=== PATIENT | male | born 1990 | race American Indian/Alaskan Native ===

== ENCOUNTER 2016-11-25 | Emergency (ER) | payer SELFPAY ==
[2016-11-25 01:02] LABS: Urine Drugs of Abuse Note Disclamer
[2016-11-25 01:20] LABS: Bilirubin,Urine NEG (Negative); Blood,Urine NEG (Negative); Ketones,Urine TR mg/dL (Negative); Leukocyte Esterase,Urine NEG (Negative); Mucus,Urine FEW /HPF; Nitrite,Urine NEG (Negative); Protein,Urine <15 mg/dL mg/dL (Negative)
[2016-11-25 01:44] LABS: Basophils % (Auto) 0.3 % (0.0-1.8); Eosinophils % (Auto) 2.6 % (0.0-4.3); Hematocrit 41.4 % (35.5-45.6); Hemoglobin 13.7 gm/dl (11.8-15.2); Mean Corpuscular HGB Conc 33 % (32-34); Mean Corpuscular Hemoglobin 28 pg (28-32); Mean Corpuscular Volume 83 fl (84-94); Platelet Count 192 K/mm3 (140-440); Red Blood Count 4.97 M/mm3 (3.65-5.03); White Blood Count 8.1 K/mm3 (4.5-11.0)
[2016-11-25 02:04] LABS: Anion Gap 20 mmol/L; BUN/Creatinine Ratio 17.77; Blood Urea Nitrogen 16 mg/dL (9-20); Calcium 9.3 mg/dL (8.4-10.2); Carbon Dioxide 23 mmol/L (22-30); Glucose 125 mg/dL (75-100); Potassium 3.7 mmol/L (3.6-5.0); Sodium 134 mmol/L (137-145)
--- NOTE | 2016-11-25 05:41 | Emergency Department Report ---
ED Anxiety HPI - General Chief Complaint: Anxiety Stated Complaint: ANXIETY Time Seen by Provider: 11/25/16 05:25 Source: patient, EMS Mode of arrival: Ambulatory - History of Present Illness Initial Comments: 25-year-old male past medical history anxiety presents with complaint of having a panic attack while driving this evening. Patient states that he stopped his vehicle and called 911 because he was driving and had a panic attack. Patient states that he has been in his usual state of health. Patient is awake and alert and oriented 3 cooperative fully lucid during my interview. States he no longer feels anxious. States he was previously on antianxiety medicine but stopped over a year ago because he had not had any panic attacks. Patient currently denies any shortness of breath chest pain nausea vomiting fever or chills. Patient denies any auditory or visual hallucinations. He is requesting primary care follow-up as he does not currently have primary care doctor. Patient denies any alcohol or drug abuse. MD Complaint: anxiety Onset/Timin -: Sudden Place: other (while driving) Previous History of Same: Yes Severity: mild Quality: intermittant Provoking factors: none known Improves With: deep breaths Worsens With: nothing - Related Data Home Medications: Previous Rx's Medication Instructions Recorded Last Taken Type Clindamycin [Clindamycin CAP] 150 mg PO QID #80 capsule 03/07/14 Unknown Rx Ibuprofen [Motrin] 600 mg PO Q8H PRN #50 tablet 03/07/14 Unknown Rx Loratadine [Claritin] 10 mg PO DAILY #30 tablet 03/07/14 Unknown Rx predniSONE [Deltasone] 50 mg PO QDAY #5 tab 03/07/14 Unknown Rx diphenhydrAMINE [Benadryl CAP] 25 mg PO Q8HR PRN #1 bottle 11/25/16 Unknown Rx Allergies/Adverse Reactions: Allergies Allergy/AdvReac Type Severity Reaction Status Date / Time No Known Allergies Allergy Unverified 03/07/14 13:51 ED Review of Systems ROS: Stated complaint: ANXIETY Other details as noted in HPI Constitutional: denies: chills, fever Eyes: denies: eye pain, eye discharge, vision change ENT: denies: ear pain, throat pain Respiratory: denies: cough, shortness of breath, wheezing Cardiovascular: denies: chest pain, palpitations Endocrine: no symptoms reported Gastrointestinal: denies: abdominal pain, nausea, diarrhea Genitourinary: denies: urgency, dysuria Musculoskeletal: denies: back pain, joint swelling, arthralgia Skin: denies: rash, lesions Neurological: denies: headache, weakness, paresthesias Psychiatric: anxiety. denies: depression Hematological/Lymphatic: denies: easy bleeding, easy bruising ED Past Medical Hx - Past Medical History Previous Medical History?: Yes Hx Psychiatric Treatment: Yes (Anxiety) - Surgical History Past Surgical History?: No - Social History Smoking Status: Current Every Day Smoker Substance Use Type: None - Medications Home Medications: Home Medications Medication Instructions Recorded Confirmed Last Taken Type Clindamycin [Clindamycin CAP] 150 mg PO QID #80 capsule 03/07/14 Unknown Rx Ibuprofen [Motrin] 600 mg PO Q8H PRN #50 tablet 03/07/14 Unknown Rx Loratadine [Claritin] 10 mg PO DAILY #30 tablet 03/07/14 Unknown Rx predniSONE [Deltasone] 50 mg PO QDAY #5 tab 03/07/14 Unknown Rx diphenhydrAMINE [Benadryl CAP] 25 mg PO Q8HR PRN #1 bottle 11/25/16 Unknown Rx ED Physical Exam - General Limitations: No Limitations General appearance: alert, in no apparent distress - Head Head exam: Present: atraumatic, normocephalic - Eye Eye exam: Present: normal appearance, PERRL, EOMI - ENT ENT exam: Present: mucous membranes moist - Neck Neck exam: Present: normal inspection - Respiratory Respiratory exam: Present: normal lung sounds bilaterally. Absent: respiratory distress - Cardiovascular Cardiovascular Exam: Present: regular rate, normal rhythm. Absent: systolic murmur, diastolic murmur, rubs, gallop - GI/Abdominal GI/Abdominal exam: Present: soft, normal bowel sounds - Rectal Rectal exam: Present: deferred - Extremities Exam Extremities exam: Present: normal inspection - Back Exam Back exam: Present: normal inspection - Neurological Exam Neurological exam: Present: alert, oriented X3 - Expanded Neurological Exam Expanded Patient oriented to: Present: person, place, time Speech: Present: fluid speech Motor strength exam: RUE: 5, LUE: 5, RLE: 5, LLE: 5 Best Eye Response ([place]): (4) open spontaneously Best Motor Response ([place]): (6) obeys commands Best Verbal Response ([place]): (5) oriented [place] Total: 15 - Psychiatric Psychiatric exam: Present: normal affect, normal mood - Skin Skin exam: Present: warm, dry, intact, normal color. Absent: rash ED Course Vital Signs 11/25/16 00:10 Temperature 97.9 F Pulse Rate 80 Respiratory 20 Rate Blood Pressure 130/76 [Right] O2 Sat by Pulse 100 Oximetry ED Medical Decision Making - Lab Data Result diagrams: 11/25/16 01:05 11/25/16 01:05 - Medical Decision Making A/P: Anxiety attack 1-now resolved, patient has no suicidal or homicidal ideation and denies any active auditory or visual hallucinations. Is cooperative and lucid, and fully oriented during my exam. No signs of acute psychosis or delirium 2-follow up with primary care and outpatient psychiatry 3-advised patient that if he begins to experience a panic attack he should take deep slow breaths seek help from family friends bystanders or medical attention as needed. I advised patient that if he experiences a panic attack he can also take by mouth [id number] Benadryl to mitigate his anxiety 4- I discussed case briefly with psych counselor miss Jacinto at [id number], we'll bring information for outpatient psych resources for patient Critical care attestation.: If time is entered above; I have spent that time in minutes in the direct care of this critically ill patient, excluding procedure time. ED Disposition Clinical Impression: Anxiety attack Disposition: DISCHARGED TO HOME OR SELFCARE Is pt being admited?: No Does the pt Need Aspirin: No Condition: Stable Instructions: Anxiety (ED) Prescriptions: diphenhydrAMINE [Benadryl CAP] 25 mg PO Q8HR PRN #1 bottle PRN Reason: Anxiety Referrals: JASMINA GALEANO MD [Staff Physician] - 3-5 Days [facility] [Outside] - 3-5 Days [facility] [Outside] - 3-5 Days [facility] [Outside] - 3-5 Days [facility] [Provider Group] - 3-5 Days Time of Disposition: 05:47
[2016-11-25 06:14] VITALS: BP 116/74
== END 2016-11-25 06:14 | disposition home or self-care (01) ==
LOC: ED
DX: F41.9 Anxiety disorder, unspecified (principal); F17.200 Nicotine dependence, unspecified, uncomplicated
CPT/HCPCS: 36415; 80048; 80307; 81001; 85025; 99283; G0480; 80320